=== PATIENT | male | born 1965 | race Caucasian/White ===

== ENCOUNTER 2024-11-08 10:55 | Emergency (ER) | payer OTHER ==
[~2024-11-08] VITALS: Ht 185.4 cm; Wt 104.3 kg
[2024-11-08] MEDS ORDERED: ACETAMINOPHEN ES 500 MG TABLET ONE (11:23)
[2024-11-08] MEDS: ACETAMINOPHEN ES 500 MG TABLET PO ONE (11:25)
[2024-11-08] MEDS ORDERED: NAPR-1164 PO (13:01)
[2024-11-08 13:16] VITALS: BP 128/78; TEMP 98.1; O2SAT 98
== END 2024-11-08 13:17 | disposition home or self-care (01) ==
LOC: ER 11:13
DX: S20.222A Contusion of left back wall of thorax, initial encounter (principal); S09.90XA Unspecified injury of head, initial encounter; I10 Essential (primary) hypertension; J45.909 Unspecified asthma, uncomplicated; Z88.0 Allergy status to penicillin; Z88.2 Allergy status to sulfonamides; W01.0XXA Fall on same level from slipping, tripping and stumbling without subsequent striking against object, initial encounter; Y93.89 Activity, other specified; Y92.89 Other specified places as the place of occurrence of the external cause; Y99.9 Unspecified external cause status
CPT/HCPCS: 70450-TC; 71100-TC; 73010-TC; 73030-TC